=== PATIENT | male | born 1975 | race African-American/Black ===

== ENCOUNTER 2022-01-01 03:55 | Inpatient (IN) | payer MEDICAID ==
[~2022-01-01] VITALS: Ht 172.7 cm; Wt 58.5 kg
[2022-01-01] MEDS ORDERED: SODIUM CHLORIDE 0.9% 1,000 ML IV ONE (05:30)
[2022-01-01 05:49] LABS: BASOPHILS % 0.2 % (0.0-2.0); EOSINOPHILS % 0.1 % (0.0-5.0); HEMOGLOBIN. 12.9 g/dL (14.0-18.0); LYMPHOCYTES % 15.4 % (20.0-50.0); MEAN CORPUSCULAR HEMOGLOBIN 30.2 pg (28.0-32.0); MEAN CORPUSCULAR VOLUME 91.8 fL (80.0-94.0); MEAN PLATELET VOLUME 8.6 fl (7.4-10.4); MONOCYTES % 11.9 % (2.0-8.0); NEUTROPHILS % 72.4 % (40.0-76.0); PLATELET 111 x1000/uL (130-400); RED BLOOD CELL COUNT 4.25 mill/uL (4.7-6.1); RED CELL DISTRIBUTION WIDTH 13.5 % (11.6-14.6)
[2022-01-01 05:57] LABS: CHLORIDE 106 mEq/L (98-107)
[2022-01-01] MEDS: ACETAMINOPHEN 650MG/20.3ML UDC PO ONE ×2 (06:30→06:43)
[2022-01-01] MEDS ORDERED: ACETAMINOPHEN 650MG SUPP PR ONE (06:45)
[2022-01-01 08:03] LABS: CLARITY URINE CLEAR (CLEAR); COLOR URINE DARK YELLOW (YELLOW); KETONES URINE TRACE (NEGATIVE); LEUKOCYTE ESTERASE URINE 2+ (NEGATIVE); NITRITE URINE NEGATIVE (NEGATIVE); OCCULT BLOOD URINE 1+ (NEGATIVE); PH URINE 7.5 (4.5-8.0); PROTEIN URINE 1+ (NEGATIVE); SPECIFIC GRAVITY URINE 1.024 (1.005-1.030)
[2022-01-01] MEDS ORDERED: SODIUM CHLORIDE 0.9% 1000ML BAG (SEPSIS BOLUS) IV ONE (08:15)
[2022-01-01] MEDS ORDERED: CEFTRIAXONE 1 G PREMIX 50 ML IV ONE (08:15)
[2022-01-01] MEDS ORDERED: NA PHOS,M-B/NA PHOS,DI-BA ENEMA 118ML PR PRN (11:30)
[2022-01-01] MEDS ORDERED: GUAIFENESIN 200MG/10ML SUGAR FREE UDC PO PRN (11:30)
[2022-01-01] MEDS ORDERED: MAGNESIUM/ALUMINUM HYDROXIDE/SIMETHICONE 30ML UDC PO PRN (11:30)
[2022-01-01] MEDS ORDERED: CLONIDINE 0.1MG TABLET PO PRN (11:30)
[2022-01-01] MEDS ORDERED: IPRATROPIUM/ALBUTEROL 0.5-3(2.5)MG/3ML NEB NEB PRN (11:30)
[2022-01-01] MEDS ORDERED: KETOROLAC 15MG/ML VIAL IV PRN (11:30)
[2022-01-01] MEDS ORDERED: ONDANSETRON HCL 4MG/2ML INJ IV PRN (11:30)
[2022-01-01] MEDS ORDERED: ACETAMINOPHEN 325MG TABLET PO PRN (11:30)
[2022-01-01] MEDS ORDERED: NITROGLYCERIN 0.4MG TABLET SL SL PRN (11:30)
[2022-01-01] MEDS ORDERED: ZOLPIDEM TARTRATE 5MG TABLET PO PRN (11:30)
[2022-01-01] MEDS ORDERED: DOCUSATE SODIUM 100MG CAPSULE PO PRN (11:30)
[2022-01-01] MEDS ORDERED: LEVOFLOXACIN 500MG PREMIX 100 ML IV SCH (11:45)
[2022-01-01] MEDS: SODIUM CHLORIDE 0.9% 1,000 ML IV SCH (12:05)
[2022-01-01 12:10] LABS: T4 FREE 1.17 ng/dL (0.76-1.46)
[2022-01-01 12:32] LABS: FOLIC ACID (FOLATE) SERUM > 20.00 ng/mL (>5.38); VITAMIN B12 SERUM > 2000.0 pg/mL (211-911)
[2022-01-01 13:00] VITALS: BP 100/64
[2022-01-01] MEDS: ENOXAPARIN 40MG/0.4ML SYR SUBCUT SCH (14:08)
[2022-01-01 14:37] VITALS: BP_SYST 107
[2022-01-01 15:30] LABS: CREATINE KINASE 116 IU/L (39-308); CREATINE KINASE MB FRACTION < 1.0 ng/mL (0.5-3.6)
[2022-01-01 16:00] VITALS: BP 135/78
[2022-01-01 20:00] VITALS: BP 136/78
[2022-01-01] MEDS: ACETAMINOPHEN 325MG TABLET PO PRN (20:33)
[2022-01-01] MEDS: ASCORBIC ACID 500 MG TABLET PO SCH (20:33)
[2022-01-02] MEDS: SODIUM CHLORIDE 0.9% 1,000 ML IV SCH ×3 (00:03→17:58)
[2022-01-02 00:18] LABS: CREATINE KINASE MB FRACTION 1.3 ng/mL (0.5-3.6)
[2022-01-02 04:00] VITALS: BP 128/78
[2022-01-02 07:25] LABS: BASOPHILS % 0.2 % (0.0-2.0); EOSINOPHILS % 0.2 % (0.0-5.0); HEMATOCRIT. 37.1 % (42.0-52.0); HEMOGLOBIN. 12.4 g/dL (14.0-18.0); LYMPHOCYTES % 25.6 % (20.0-50.0); MEAN CORPUSCULAR HEMOGLOBIN 30.3 pg (28.0-32.0); MEAN CORPUSCULAR VOLUME 91.2 fL (80.0-94.0); MEAN PLATELET VOLUME 8.8 fl (7.4-10.4); MONOCYTES % 10.3 % (2.0-8.0); NEUTROPHILS % 63.7 % (40.0-76.0); PLATELET 91 x1000/uL (130-400); RED BLOOD CELL COUNT 4.07 mill/uL (4.7-6.1); RED CELL DISTRIBUTION WIDTH 13.6 % (11.6-14.6)
[2022-01-02 07:42] LABS: CHLORIDE 110 mEq/L (98-107)
[2022-01-02 07:56] LABS: PHOSPHORUS 2.5 mg/dL (2.5-4.9)
[2022-01-02 08:00] VITALS: BP 101/68
[2022-01-02] MEDS: CHOLECALCIFEROL (D3) 1000 UNIT TABLET PO SCH (09:00)
[2022-01-02] MEDS ORDERED: CEFTRIAXONE 1 G PREMIX 50 ML IV SCH (09:00)
[2022-01-02] MEDS: ZINC SULFATE 220 MG ( 50 ) CAPSULE PO SCH (09:00)
[2022-01-02] MEDS: ASCORBIC ACID 500 MG TABLET PO SCH ×2 (09:00→21:18)
[2022-01-02] MEDS: CEFTRIAXONE 1,000 MG in DEXTROSE 5% WATER 50 ML IV SCH (11:25)
[2022-01-02] MEDS: PANTOPRAZOLE SODIUM 40 MG/VIAL IV SCH (11:33)
[2022-01-02 12:00] VITALS: BP 132/73
[2022-01-02] MEDS: ENOXAPARIN 40MG/0.4ML SYR SUBCUT SCH (13:00)
[2022-01-02] MEDS ORDERED: DIATR MEGLU/DIATRIZOATE SOLN 30ML PO SCH (13:00)
[2022-01-02] MEDS: LEVOFLOXACIN 500MG PREMIX 100 ML IV SCH (14:04)
[2022-01-02 16:00] VITALS: BP 108/64
[2022-01-02 20:00] VITALS: BP 111/61
[2022-01-03] VITALS: BP 108/67
[2022-01-03 04:00] VITALS: BP 116/72
[2022-01-03] MEDS: SODIUM CHLORIDE 0.9% 1,000 ML IV SCH ×3 (05:08→23:42)
[2022-01-03 08:00] VITALS: BP 119/54
[2022-01-03] MEDS: ZINC SULFATE 220 MG ( 50 ) CAPSULE PO SCH (08:37)
[2022-01-03] MEDS: CEFTRIAXONE 1,000 MG in DEXTROSE 5% WATER 50 ML IV SCH (08:37)
[2022-01-03] MEDS: CHOLECALCIFEROL (D3) 1000 UNIT TABLET PO SCH (08:37)
[2022-01-03] MEDS: PANTOPRAZOLE SODIUM 40 MG/VIAL IV SCH (08:37)
[2022-01-03] MEDS: ASCORBIC ACID 500 MG TABLET PO SCH ×2 (08:37→21:31)
[2022-01-03] MEDS: LEVOFLOXACIN 500MG PREMIX 100 ML IV SCH (11:55)
[2022-01-03 12:00] VITALS: BP 133/79
[2022-01-03] MEDS: ENOXAPARIN 40MG/0.4ML SYR SUBCUT SCH (13:00)
[2022-01-03 16:00] VITALS: BP 123/80
[2022-01-03 20:00] VITALS: BP 113/63
[2022-01-04] VITALS: BP 110/70
[2022-01-04 04:00] VITALS: BP 108/64
[2022-01-04 06:42] LABS: BASOPHILS % 0.2 % (0.0-2.0); EOSINOPHILS % 0.1 % (0.0-5.0); HEMOGLOBIN. 14.2 g/dL (14.0-18.0); LYMPHOCYTES % 25.5 % (20.0-50.0); MEAN CORPUSCULAR HEMOGLOBIN 30.3 pg (28.0-32.0); MEAN CORPUSCULAR VOLUME 89.3 fL (80.0-94.0); MEAN PLATELET VOLUME 8.8 fl (7.4-10.4); MONOCYTES % 10.1 % (2.0-8.0); NEUTROPHILS % 64.1 % (40.0-76.0); PLATELET 91 x1000/uL (130-400); RED CELL DISTRIBUTION WIDTH 13.1 % (11.6-14.6)
[2022-01-04 08:05] VITALS: BP 99/63
[2022-01-04] MEDS: ASCORBIC ACID 500 MG TABLET PO SCH ×2 (08:52→21:35)
[2022-01-04] MEDS: CHOLECALCIFEROL (D3) 1000 UNIT TABLET PO SCH (08:52)
[2022-01-04] MEDS: ZINC SULFATE 220 MG ( 50 ) CAPSULE PO SCH (08:52)
[2022-01-04] MEDS: CEFTRIAXONE 1,000 MG in DEXTROSE 5% WATER 50 ML IV SCH (08:52)
[2022-01-04] MEDS: PANTOPRAZOLE SODIUM 40 MG/VIAL IV SCH (08:52)
[2022-01-04] MEDS: SODIUM CHLORIDE 0.9% 1,000 ML IV SCH ×2 (08:53→21:35)
[2022-01-04 12:00] VITALS: BP 119/65
[2022-01-04] MEDS: MEROPENEM 1,000 MG in SODIUM CHLORIDE 0.9% 100 ML IV SCH ×2 (12:09→21:35)
[2022-01-04] MEDS: ENOXAPARIN 40MG/0.4ML SYR SUBCUT SCH (12:12)
[2022-01-04 16:00] VITALS: BP 128/77
[2022-01-04 20:00] VITALS: BP 106/70
[2022-01-04] MEDS: ACETAMINOPHEN 325MG TABLET PO PRN (21:36)
[2022-01-05] VITALS: BP 95/59
[2022-01-05] MEDS: MEROPENEM 1,000 MG in SODIUM CHLORIDE 0.9% 100 ML IV SCH ×3 (01:43→17:44)
[2022-01-05 04:59] VITALS: BP 122/79
[2022-01-05] MEDS: SODIUM CHLORIDE 0.9% 1,000 ML IV SCH ×2 (06:53→17:44)
[2022-01-05 08:00] VITALS: BP 114/66
[2022-01-05] MEDS: ASCORBIC ACID 500 MG TABLET PO SCH ×2 (09:42→20:34)
[2022-01-05] MEDS: CHOLECALCIFEROL (D3) 1000 UNIT TABLET PO SCH (09:43)
[2022-01-05] MEDS: ZINC SULFATE 220 MG ( 50 ) CAPSULE PO SCH (09:43)
[2022-01-05] MEDS: PANTOPRAZOLE SODIUM 40 MG/VIAL IV SCH (11:25)
[2022-01-05 12:00] VITALS: BP 107/67
[2022-01-05] MEDS: ENOXAPARIN 40MG/0.4ML SYR SUBCUT SCH (12:35)
[2022-01-05 16:00] VITALS: BP 117/70
[2022-01-05 20:00] VITALS: BP 136/75
[2022-01-05] MEDS: ACETAMINOPHEN 325MG TABLET PO PRN (20:52)
[2022-01-06] VITALS: BP 118/70
[2022-01-06] MEDS: MEROPENEM 1,000 MG in SODIUM CHLORIDE 0.9% 100 ML IV SCH ×3 (01:28→18:14)
[2022-01-06] MEDS: SODIUM CHLORIDE 0.9% 1,000 ML IV SCH ×3 (01:29→20:37)
[2022-01-06 04:00] VITALS: BP 91/52
[2022-01-06] MEDS: KETOROLAC 15MG/ML VIAL IV PRN ×2 (04:30→13:06)
[2022-01-06] MEDS: ACETAMINOPHEN 325MG TABLET PO PRN ×2 (04:30→20:37)
[2022-01-06 08:00] VITALS: BP 112/63
[2022-01-06] MEDS: PANTOPRAZOLE SODIUM 40 MG/VIAL IV SCH (08:00)
[2022-01-06] MEDS: ASCORBIC ACID 500 MG TABLET PO SCH ×2 (08:01→20:37)
[2022-01-06] MEDS: ZINC SULFATE 220 MG ( 50 ) CAPSULE PO SCH (08:01)
[2022-01-06] MEDS: CHOLECALCIFEROL (D3) 1000 UNIT TABLET PO SCH (09:00)
[2022-01-06 12:00] VITALS: BP 131/71
[2022-01-06] MEDS: ENOXAPARIN 40MG/0.4ML SYR SUBCUT SCH (13:03)
[2022-01-06 16:00] VITALS: BP 120/72
[2022-01-06 20:00] VITALS: BP 138/65
[2022-01-07] VITALS: BP 106/61
[2022-01-07] MEDS: MEROPENEM 1,000 MG in SODIUM CHLORIDE 0.9% 100 ML IV SCH ×3 (01:39→17:27)
[2022-01-07 04:00] VITALS: BP 123/75
[2022-01-07 08:00] VITALS: BP 99/59
[2022-01-07] MEDS: PANTOPRAZOLE SODIUM 40 MG/VIAL IV SCH (08:23)
[2022-01-07] MEDS: ZINC SULFATE 220 MG ( 50 ) CAPSULE PO SCH (08:24)
[2022-01-07] MEDS: SODIUM CHLORIDE 0.9% 1,000 ML IV SCH ×2 (08:24→17:27)
[2022-01-07] MEDS: ACETAMINOPHEN 325MG TABLET PO PRN (08:25)
[2022-01-07] MEDS: ASCORBIC ACID 500 MG TABLET PO SCH ×2 (08:25→20:19)
[2022-01-07] MEDS: CHOLECALCIFEROL (D3) 1000 UNIT TABLET PO SCH (09:59)
[2022-01-07 12:00] VITALS: BP 125/72
[2022-01-07 13:11] LABS: BASOPHILS % 0.3 % (0.0-2.0); EOSINOPHILS % 1.4 % (0.0-5.0); HEMATOCRIT. 37.4 % (42.0-52.0); HEMOGLOBIN. 12.5 g/dL (14.0-18.0); LYMPHOCYTES % 24.2 % (20.0-50.0); MEAN CORPUSCULAR HEMOGLOBIN 29.9 pg (28.0-32.0); MEAN CORPUSCULAR VOLUME 89.7 fL (80.0-94.0); MEAN PLATELET VOLUME 7.8 fl (7.4-10.4); MONOCYTES % 12.2 % (2.0-8.0); NEUTROPHILS % 61.9 % (40.0-76.0); PLATELET 136 x1000/uL (130-400); RED BLOOD CELL COUNT 4.16 mill/uL (4.7-6.1); RED CELL DISTRIBUTION WIDTH 13.6 % (11.6-14.6)
[2022-01-07 13:21] LABS: CHLORIDE 107 mEq/L (98-107)
[2022-01-07 13:21] LABS: CLARITY URINE CLEAR (CLEAR); COLOR URINE YELLOW (YELLOW); KETONES URINE NEGATIVE (NEGATIVE); LEUKOCYTE ESTERASE URINE NEGATIVE (NEGATIVE); NITRITE URINE NEGATIVE (NEGATIVE); OCCULT BLOOD URINE 2+ (NEGATIVE); PH URINE 7.5 (4.5-8.0); PROTEIN URINE NEGATIVE (NEGATIVE); SPECIFIC GRAVITY URINE 1.007 (1.005-1.030); UROBILINOGEN URINE 0.2 E.U./dL (0.2-1.0)
[2022-01-07] MEDS: ENOXAPARIN 40MG/0.4ML SYR SUBCUT SCH (13:32)
[2022-01-07 16:00] VITALS: BP 120/72
[2022-01-07 20:00] VITALS: BP 142/79
[2022-01-08] VITALS: BP 126/72
[2022-01-08] MEDS: SODIUM CHLORIDE 0.9% 1,000 ML IV SCH ×3 (02:50→21:45)
[2022-01-08] MEDS: MEROPENEM 1,000 MG in SODIUM CHLORIDE 0.9% 100 ML IV SCH ×3 (02:50→17:09)
[2022-01-08 04:00] VITALS: BP 108/66
[2022-01-08] MEDS ORDERED: PROPOFOL 200MG/20ML VIAL IV ONE (07:39)
[2022-01-08] MEDS ORDERED: EPHEDRINE SULFATE 50MG/ML VIAL ONE (08:06)
[2022-01-08] MEDS ORDERED: CEFAZOLIN SODIUM 1000MG/VIAL ONE (08:06)
[2022-01-08] MEDS ORDERED: DEXAMETHASONE 4MG/ML 1ML VIAL ONE (08:06)
[2022-01-08] MEDS ORDERED: METOPROLOL TARTRATE 5MG/5ML VIAL IV ONE (08:58)
[2022-01-08] MEDS: CHOLECALCIFEROL (D3) 1000 UNIT TABLET PO SCH (09:00)
[2022-01-08] MEDS: PANTOPRAZOLE SODIUM 40 MG/VIAL IV SCH (09:00)
[2022-01-08] MEDS: ASCORBIC ACID 500 MG TABLET PO SCH ×2 (09:00→21:00)
[2022-01-08] MEDS: ZINC SULFATE 220 MG ( 50 ) CAPSULE PO SCH (09:00)
[2022-01-08] MEDS ORDERED: MEPERIDINE HCL/PF 25MG/ML CPJ IV PRN (10:00)
[2022-01-08] MEDS ORDERED: HYDROMORPHONE HCL/PF 2MG/ML CPJ IV PRN (10:00)
[2022-01-08] MEDS ORDERED: ONDANSETRON HCL 4MG/2ML INJ IV PRN (10:00)
[2022-01-08] MEDS ORDERED: LABETALOL 5MG/ML SYR 20 MG/4 ML SYRINGE IV PRN (10:00)
[2022-01-08 11:17] VITALS: BP 134/77
[2022-01-08] MEDS: ENOXAPARIN 40MG/0.4ML SYR SUBCUT SCH (13:04)
[2022-01-08 16:00] VITALS: BP 118/74
[2022-01-08 20:00] VITALS: BP 97/52
[2022-01-09] VITALS: BP 122/67
[2022-01-09] MEDS: MEROPENEM 1,000 MG in SODIUM CHLORIDE 0.9% 100 ML IV SCH ×2 (02:00→09:39)
[2022-01-09 04:00] VITALS: BP 102/59
[2022-01-09 08:00] VITALS: BP 129/72
[2022-01-09] MEDS: CHOLECALCIFEROL (D3) 1000 UNIT TABLET PO SCH (08:37)
[2022-01-09] MEDS: ZINC SULFATE 220 MG ( 50 ) CAPSULE PO SCH (08:37)
[2022-01-09] MEDS: ASCORBIC ACID 500 MG TABLET PO SCH (09:13)
[2022-01-09] MEDS: PANTOPRAZOLE SODIUM 40 MG/VIAL IV SCH (09:39)
[2022-01-09] MEDS: SODIUM CHLORIDE 0.9% 1,000 ML IV SCH (09:46)
[2022-01-09 12:00] VITALS: BP 137/81
[2022-01-09] MEDS ORDERED: METRONIDAZOLE 500MG TABLET GT SCH (12:00)
[2022-01-09] MEDS ORDERED: LEVOFLOXACIN 500MG TABLET GT SCH (12:00)
[2022-01-09] MEDS: ENOXAPARIN 40MG/0.4ML SYR SUBCUT SCH (13:12)
[2022-01-09] MEDS ORDERED: METR-167 MT (14:58)
[2022-01-09] MEDS ORDERED: LEVO500T90 MT (14:58)
[2022-01-09 16:00] VITALS: BP 138/88
[2022-01-09 16:32] VITALS: BP 129/75
== END 2022-01-09 19:50 | disposition home or self-care (01) | DRG 710 ==
LOC: ER 04:07 → EDBEDREQSVC 11:05 → 7EST 11:08 → EDBEDREQSVC 11:17 → EDBEDREQ 11:17 → EDBEDREQTM 11:17 → ENRESERV 12:13
PROVIDERS: ADMIT Internal Medicine; ATTEND Internal Medicine
PROC: 0TC78ZZ Extirpation of Matter from Left Ureter, Via Natural or Artificial Opening Endoscopic (ICD-10-PCS; principal; 2022-01-08)
PROC: 0TC68ZZ Extirpation of Matter from Right Ureter, Via Natural or Artificial Opening Endoscopic (ICD-10-PCS; 2022-01-08)
DX: A41.9 Sepsis, unspecified organism (principal); J12.82 Pneumonia due to coronavirus disease 2019; G92.8 Other toxic encephalopathy; G82.50 Quadriplegia, unspecified; U07.1 COVID-19; D64.9 Anemia, unspecified; D69.6 Thrombocytopenia, unspecified; K62.89 Other specified diseases of anus and rectum; N13.6 Pyonephrosis; N40.0 Benign prostatic hyperplasia without lower urinary tract symptoms; Z87.820 Personal history of traumatic brain injury
CPT/HCPCS: 36415; 71045; 74021; 74178; 76000; 80053; 81003; 82360; 82550; 82553; 82607; 82746; 83036; 83540; 83550; 83605; 83735; 84100; 84439; 84443; 84484; 84550; 85025; 87426; 88108; 92610; 93005; 93970; 99291; C1769; C9113; C9803; J0690; J0696; J1100; J1650; J1885; J1956; J2185; J2704; J3490; J7030; J7050; J7060; Q9963

== ENCOUNTER → 2022-03-28 | Day surgery (SDC) | payer MEDICAID ==
[~2022-03-28] VITALS: Ht 172.7 cm; Wt 61.6 kg
[~2022-03-28] MED LIST: ATROPINE SULFATE 0.4MG/ML VIAL IV PRN; BISA10SU62 RC; CEFAZOLIN SODIUM 1000MG/VIAL ONE; DEXAMETHASONE 4MG/ML 1ML VIAL ONE; FENTANYL CITRATE/PF 50MCG/ML 2ML VIAL IV PRN; FENTANYL CITRATE/PF 50MCG/ML 2ML VIAL ONE; LACTATED RINGERS 1,000 ML IV SCH; LIDOCAINE HCL 1% 30ML VIAL (10MG/ML) ONE; MIDAZOLAM HCL 2 MG/2 ML VIAL ONE; ONDANSETRON HCL 4MG/2ML INJ IV PRN; ONDANSETRON HCL 4MG/2ML INJ ONE; PHENYLEPHRINE HCL 10 MG/ML 1ML (IV VIAL) IV ONE; PROPOFOL 200MG/20ML VIAL IV ONE; TOPUD GT
[2022-03-28 05:52] LABS: BASOPHILS % 0.4 % (0.0-2.0); EOSINOPHILS % 1.3 % (0.0-5.0); HEMATOCRIT. 43.2 % (42.0-52.0); HEMOGLOBIN. 14.1 g/dL (14.0-18.0); LYMPHOCYTES % 40.4 % (20.0-50.0); MEAN CORPUSCULAR HEMOGLOBIN 30.1 pg (28.0-32.0); MEAN CORPUSCULAR VOLUME 92.1 fL (80.0-94.0); MEAN PLATELET VOLUME 7.8 fl (7.4-10.4); MONOCYTES % 6.4 % (2.0-8.0); NEUTROPHILS % 51.5 % (40.0-76.0); PLATELET 172 x1000/uL (130-400); RED BLOOD CELL COUNT 4.69 mill/uL (4.7-6.1); RED CELL DISTRIBUTION WIDTH 15.7 % (11.6-14.6)
[2022-03-28 05:58] LABS: CHLORIDE 103 mEq/L (98-107)
[2022-03-28 07:03] LABS: PARTIAL THROMBOPLASTIN TIME 30.4 sec (23.4-31.0); PROTHROMBIN TIME 10.9 sec (9.6-11.0)
== END | disposition home or self-care (01) ==
LOC: OR 05:11
PROVIDERS: ATTEND Urology
DX: Z45.2 Encounter for adjustment and management of vascular access device (principal); N20.0 Calculus of kidney; I10 Essential (primary) hypertension; Z79.899 Other long term (current) drug therapy; Z98.890 Other specified postprocedural states; Z87.891 Personal history of nicotine dependence; Z20.822 Contact with and (suspected) exposure to COVID-19
CPT/HCPCS: 36415; 36573; 50590; 52000; 71045; 80048; 85025; 85610; 85730; 87426; 93005; C1725; C9803; J0690; J1100; J2250; J2370; J2405; J2704; J3010; J3490; A4565